=== PATIENT | male | born 1995 | race Caucasian/White ===

== ENCOUNTER → 2017-09-30 | Outpatient (REF) ==
[~2017-09-30] MED LIST: ALBU0.632 IH; ALBU17AE23 IH
--- NOTE | 2017-09-30 13:08 | Diagnostic Imaging Report ---
PATIENT HISTORY: POSITIVE TB TEST. TECHNIQUE: Two views of the chest. COMPARISON: 12/17/2009. FINDINGS: The lung volumes are normal. No focal consolidation is seen. No large pleural effusion or pneumothorax is seen. The cardiomediastinal silhouette is normal in size and contour. No acute osseous abnormality is seen. IMPRESSION: No acute pulmonary abnormality seen. There is no radiographic evidence of tuberculosis. Dictated by: Dictated on workstation # [id number]
== END | disposition home or self-care (01) ==
LOC: OCC 12:31
PROVIDERS: ATTEND Nurse Practitioner Family
CPT/HCPCS: 71046